=== PATIENT | male | born 2005 | race Caucasian/White ===

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

== ENCOUNTER 2025-09-19 07:00 | Outpatient (RCR) | payer OTHER, SELFPAY | END 2025-09-19 23:59 | disposition home or self-care (01) | LOC: PT.CARL 07:00 | PROVIDERS: Visit Provider Orthopaedic Surgery | DX: S83.221A Peripheral tear of medial meniscus, current injury, right knee, initial encounter (principal); X58.XXXA Exposure to other specified factors, initial encounter | CPT/HCPCS: 97010; 97032; 97110; 97161; 97530 ==

== ENCOUNTER 2025-10-17 07:00 | Outpatient (RCR) | payer OTHER, SELFPAY | END 2025-10-17 23:59 | disposition home or self-care (01) | LOC: PT.CARL 07:00 | PROVIDERS: Visit Provider Orthopaedic Surgery | DX: S83.221A Peripheral tear of medial meniscus, current injury, right knee, initial encounter (principal) | CPT/HCPCS: 97032; 97110; 97112; 97530 ==

== ENCOUNTER 2025-10-22 06:58 | Outpatient (RCR) | payer OTHER, SELFPAY | END 2025-10-29 10:50 | disposition home or self-care (01) | LOC: PT.CARL 06:58 | PROVIDERS: Visit Provider Orthopaedic Surgery | DX: S83.221A Peripheral tear of medial meniscus, current injury, right knee, initial encounter (principal); X58.XXXA Exposure to other specified factors, initial encounter | CPT/HCPCS: 97110 ==